=== PATIENT | male | born 1930 | race Caucasian/White ===

== ENCOUNTER 2017-03-23 13:38 | Emergency (ER) | payer MEDICARE ==
[2017-03-23 14:26] VITALS: BP 133/77
--- NOTE | 2017-03-23 14:38 | UC ---
Elbow Pain - HPI Summary HPI Summary: 86 yo male with left elbow pain and redness noted today no recalled trauma Stage 4 LUNG CA right handed - History of Current Complaint Chief Complaint: UCUpperExtremity Stated Complaint: LEFT ELBOW PAIN Time Seen by Provider: 03/23/17 14:24 Hx Obtained From: Patient Mechanism of Injury: no known trauma Onset/Duration: Hours Severity Initially: Mild Severity Currently: None Pain Intensity: 4 Pain Scale Used: 0-10 Numeric Location Of Pain: Is Discrete @ Character: Dull Alleviating Factor(s): Rest Associated Signs And Symptoms: Positive: Swelling, Redness - Allergies/Home Medications Allergies/Adverse Reactions: Allergies Allergy/AdvReac Type Severity Reaction Status Date / Time Ofloxacin [From Floxin] Allergy Intermediate Hives Verified 03/23/17 14:17 Sulfa Antibiotics Allergy Intermediate GI Upset Verified 03/23/17 14:17 Home Medications: Home Medications Fluticasone-Salmeterol 100-50* [Advair Diskus 100-50*] 1 puff INH DAILY [History Confirmed 03/23/17] predniSONE TAB* [Deltasone TAB*] 1 mg PO DAILY 03/23/17 [History Confirmed 03/23] PMH/Surg Hx/FS Hx/Imm Hx Previously Healthy: Yes Respiratory History: COPD Cancer History: Lung Cancer - Surgical History Surgical History: Yes Surgery Procedure, Year, and Place: appy, left knee, hernia, right bunion removal - Family History Known Family History: Positive: Hypertension - Social History Alcohol Use: None Substance Use Type: None Smoking Status (MU): Former Smoker Type: Cigarettes Length of Time of Smoking/Using Tobacco: 38 years ago Review of Systems Constitutional: Negative Skin: Negative Eyes: Negative ENT: Negative Respiratory: Negative Cardiovascular: Negative Gastrointestinal: Negative Genitourinary: Negative Motor: Negative Neurovascular: Negative Musculoskeletal: Arthralgia Neurological: Negative Psychological: Negative Is Patient Immunocompromised?: Yes All Other Systems Reviewed And Are Negative: Yes Physical Exam Triage Information Reviewed: Yes Appearance: Well-Appearing, No Pain Distress, Well-Nourished Vital Signs: Initial Vital Signs Temp 97.9 F 03/23/17 14:20 Pulse 76 03/23/17 14:20 Resp 16 03/23/17 14:20 BP 133/77 03/23/17 14:20 Pulse Ox 98 03/23/17 14:20 Vital Signs Reviewed: Yes Eyes: Positive: Conjunctiva Clear ENT: Positive: Hearing grossly normal. Negative: Nasal congestion, Nasal drainage, Trismus, Muffled/hoarse voice Neck: Positive: Supple Respiratory: Positive: No respiratory distress, No accessory muscle use, Rhonchi Cardiovascular: Positive: RRR, No Murmur Musculoskeletal: Positive: Strength Intact, ROM Intact, Edema @ - over left olecranon, Other: - see image Neurological: Positive: Alert Psychological Exam: Normal Skin Exam: Normal Diagnostics - Radiology No standard instances Xray Interpretation: No Acute Changes - Dorsal soft tissue swelling consistent with olecranon bursitis. No fracture or joint effusion is noted Radiology Interpretation Completed By: Radiologist Elbow Pain Course/Dx - Differential Dx/Diagnosis Provider Diagnoses: left olecranon bursitis Discharge - Discharge Plan Condition: Stable Disposition: HOME Prescriptions: Cephalexin CAP* [Keflex CAP*] 500 mg PO QID #28 cap Famotidine TAB* [Pepcid 20 MG TAB*] 20 mg PO DAILY #7 tab Naproxen Sodium [Naproxen Sodium 500 MG TAB] 500 mg PO BID PRN #14 tab PRN Reason: Pain Patient Education Materials: Elbow Bursitis (ED) Referrals: Jadon Hernandez MD [Primary Care Provider] - As Soon As Possible Additional Instructions: TO ER FOR: increased pain or swelling fever if not improved in 48 hours rest elbow/don't lean on it or rest it on a table heat
[2017-03-23] MEDS ORDERED: Cephalexin CAP* 500 MG PO ONE (15:03)
--- NOTE | 2017-03-23 15:04 | RAD ---
Indication: Left elbow pain and swelling. 4 views of left elbow demonstrates soft tissue swelling at the olecranon bursa. No evidence of joint effusion is noted. No fractures identified. IMPRESSION: Dorsal soft tissue swelling consistent with olecranon bursitis. No fracture or joint effusion is noted.
== END 2017-03-23 15:18 | disposition home or self-care (01) ==
LOC: UCCORT 13:38
DX: M70.22 Olecranon bursitis, left elbow (principal); Z88.1 Allergy status to other antibiotic agents; Z87.891 Personal history of nicotine dependence; Z88.2 Allergy status to sulfonamides
CPT/HCPCS: 99212; A9270-GY; G0463